=== PATIENT | female | born 1995 | race Caucasian/White ===

== ENCOUNTER 2018-08-17 10:19 | Emergency (ER) | payer OTHER ==
[~2018-08-17] VITALS: Ht 165.1 cm; Wt 87.0 kg
[~2018-08-17 10:19] MED LIST: GUAI5SYR2 PO; IBUP-1542 PO; OXYM15SP34 NASAL
[2018-08-17 10:24] VITALS: BP 141/82; PULSE 97; RESP 18; Ht 165.1 cm; Wt 87.0 kg
--- NOTE | 2018-08-17 11:14 | ERD ---
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 Patient with chronic complaint of left upper quadrant abdominal pain. Pain is been constant since June she denies any worsening of pain of radiation. She denies any nausea or vomiting, bright red blood per rectum, other bleeding symptoms, vaginal discharge or bleeding. At time of evaluation she is hemodynamically stable in no acute distress with normal triage vital signs. Requesting direct evaluation from her surgeon here at [facility]. ROS All systems reviewed and are negative except as per history of present illness. Medications Home Meds Active Scripts Guaifenesin-Dextromethorphan* (Robitussin* DM) 100MG/10MG/5ML Syrup, 10 ML PO Q6H PRN for COUGH, #1 BOTTLE Prov:JAMES SALCEDO 12/02/14 Oxymetazoline Hcl* (Afrin [place]*) 0.05% - 15 Ml [place], 2 SPRAYS NASAL BID for NASAL CONGESTION for 3 Days, SPRAY to each nostril Prov:JAMES SALCEDO 12/02/14 Ibuprofen* (Motrin*) 600 Mg Tab, 600 MG PO Q6H PRN for PAIN AND OR ELEVATED TEMP, #30 Prov:JOAN PONCE NP 10/27/14 Allergies Allergies: Coded Allergies: No Known Allergy (Unverified , 04/14/15) PMhx/Soc History of Surgery: No Anesthesia Reaction: No Hx Neurological Disorder: No Hx Respiratory Disorders: No Hx Cardiac Disorders: No Hx Psychiatric Problems: No Hx Miscellaneous Medical Probl: Yes (gerd) Hx Alcohol Use: No Hx Substance Use: No Hx Tobacco Use: No Smoking Status: Never smoker FmHx Family History: No diabetes, No coronary disease, No other Physical Exam Vitals Vital Signs Date Temp Pulse Resp B/P (MAP) Pulse Ox O2 O2 Flow FiO2 Time Delivery Rate 08/17/18 98.4 97 18 141/82 97 10:24 (101) Physical Exam Deferred Results 24 hrs Current Medications Medications Dose Sig/Noris Start Time Status Last (Trade) Ordered Route PRN Stop Time Admin Dose Reason Admin 0.5 ml ONCE ONCE 08/17/18 DC 08/17/18 Pneumococcal IM* 11:30 12:12 Polyvalent 08/17/18 11:33 Vaccine (Pneumovax-23 ) Procedures/MDM 23-year-old female who presents per request of her surgeon. Recently with MRI finding of exophytic mass of spleen possibly requiring splenectomy. Patient with no acute complaints at time of evaluation. Deferring physical examination preferring to be seen by her surgeon. Surgeon was contacted and further care will be handled by surgical team. Plan: Given 2 out of 4 requested vaccines, further care with Dr. Brenner Departure Condition: Stable AUSTEN SANCHEZ PA-C Aug 17, 2018 11:14
[2018-08-17] MEDS ORDERED: HAEMPH B POLYSAC CONJ-MENIN/PF 7.5 MCG/0.5 ML VIAL IM* ONE (11:30)
[2018-08-17] MEDS ORDERED: PNEUMOCOCCAL VACCINE 0.5 ML INJ IM* ONE (11:30)
--- NOTE | 2018-08-17 12:43 | QN ---
Documentation Comment My independent concise history is splenic mass. My pertinent physical exam findings are normal exam. The plan is the patient will be seen by Dr. Brenner in the emergency department. He has requested vaccines to be given and I have ordered the one that we have available in the 1 of the patient needed. She will need to get the 2 other meningococcal vaccines by her primary doctor as we do not have them here at the hospital. The patient will have an elective splenectomy within the next few weeks. RAJINDER PEDROZA MD Aug 17, 2018 12:43
--- NOTE | 2018-08-17 13:50 | CONS ---
Assessment/Plan Assessment/Plan Hospital Course (Demo Recall) 1. Splenic mass: -Patient will need to obtain immunizations prior to splenectomy>discussed with patient; she has received 1 vaccine in the ED, will need the others from PCP -To schedule appointment with us as outpatient 2 weeks after vaccinations for eventual splenectomy> discussed with patient 2. Intermittent abdominal pain: -Pain management as needed 3. Obesity: -Highly encourage weight loss -Diet and exercise optimization Thank you. Patient seen and examined in collaboration with Dr. Raul Brenner. Consultation Date/Type/Reason Admit Date/Time Date of Consultation: Aug 17, 2018 Type of Consult Surgical Reason for Consultation Splenic mass Requesting Provider: RAJINDER PEDROZA MD Date/Time of Note DATE: 08/17/18 TIME: 13:41 Hx of Present Illness Rebecca Schaefer is a 23-year-old woman with past medical history of mononucleosis, obesity, and appendicitis status post laparoscopic appendectomy who presented to the ED with complaints of left upper quadrant discomfort. Notably, she is known to have a splenic mass, found during outpatient workup, for which she is requesting surgical intervention. She denies fevers, chills, congested cough, chest pain, palpitations, nausea, vomiting, diarrhea, change in bowel or bladder habits, recent weight loss or weight changes. General surgery was asked to evaluate. 12 point review of systems was performed and is negative except as stated in HPI. Past Medical History As above Home Meds Active Scripts Guaifenesin-Dextromethorphan* (Robitussin* DM) 100MG/10MG/5ML Syrup, 10 ML PO Q6H PRN for COUGH, #1 BOTTLE Prov:JAMES SALCEDO 12/02/14 Oxymetazoline Hcl* (Afrin [place]*) 0.05% - 15 Ml [place], 2 SPRAYS NASAL BID for NASAL CONGESTION for 3 Days, SPRAY to each nostril Prov:JAMES SALCEDO 12/02/14 Ibuprofen* (Motrin*) 600 Mg Tab, 600 MG PO Q6H PRN for PAIN AND OR ELEVATED TEMP, #30 Prov:JOAN PONCE WEBSITE DESIGNER 10/27/14 Allergies: Coded Allergies: No Known Allergy (Unverified , 04/14/15) Past Surgical History As above Family History Significant Family History: no pertinent family hx Social History Alcohol Use: occasionally Smoking Status: Light tobacco smoker Drug Use: none Exam/Review of Systems Exam Vitals Vital Signs Date Temp Pulse Resp B/P (MAP) Pulse Ox O2 O2 Flow FiO2 Time Delivery Rate 08/17/18 98.4 97 18 141/82 97 10:24 (101) Constitutional: alert, oriented, well developed Psych: anxiety (Minimal) Head: normocephalic, atraumatic Eyes: nl conjunctiva, EOMI, nl lids, nl sclera ENMT: nl external ears & nose, nl lips & teeth, mucosa pink and moist Neck: supple, non-tender; No jvd Respiratory: normal air movement; No congested cough Cardiovascular: regular rate and rhythm, nl pulses; No edema Gastrointestinal: soft, non-tender, distended (Minimal), tender (Left upper quadrant) Genitourinary - Female: nl external genitalia Musculoskeletal: nl extremities to inspection, nl gait and stance Extremities: normal pulses; No edema Neurological: nl mental status, nl speech, nl strength Skin: nl turgor; No rash or lesions Lymph: nl lymph nodes ART PABON NP Aug 17, 2018 13:50
== END 2018-08-17 13:00 | disposition home or self-care (01) ==
LOC: FTE 10:19
DX: R16.1 Splenomegaly, not elsewhere classified (principal); Z23 Encounter for immunization
CPT/HCPCS: 90471; 90732; Z7502

== ENCOUNTER 2018-08-27 21:13 | Emergency (ER) | payer SELFPAY | END 2018-08-27 21:26 | disposition left against medical advice (07) | LOC: E/R 21:13 | DX: Z53.21 Procedure and treatment not carried out due to patient leaving prior to being seen by health care provider (principal) ==

== ENCOUNTER 2018-09-09 19:31 | Emergency (ER) | payer OTHER ==
[~2018-09-09] VITALS: Ht 165.1 cm; Wt 89.5 kg
[2018-09-09 19:40] VITALS: Ht 165.1 cm; Wt 89.5 kg
[2018-09-09] MEDS ORDERED: KETOROLAC 30 MG INJ IM STA (22:43)
[2018-09-10] MEDS ORDERED: ACET-141 PO (00:46)
[2018-09-10] MEDS ORDERED: CIPR500T4 PO (00:47)
--- NOTE | 2018-09-10 00:49 | ERD ---
ER Documentation Chief Complaint Chief Complaint C/O WORSENING LUQ PAIN X1 MONTH, STATES DX W/ SPLEEN TUMOR ROS All systems reviewed and are negative except as per history of present illness. Medications Home Meds Active Scripts Ciprofloxacin Hcl* (Ciprofloxacin Hcl*) 500 Mg Tablet, 500 MG PO BID for uti for 5 Days, #10 TAB Prov:SHILOH BEAVER DO 09/10/18 Acetaminophen* (Acetaminophen*) 500 MG Extra Strength Tablet, 500 MG PO Q4H PRN for PAIN AND OR ELEVATED TEMP, #30 TAB Prov:SHILOH BEAVER DO 09/10/18 Guaifenesin-Dextromethorphan* (Robitussin* DM) 100MG/10MG/5ML Syrup, 10 ML PO Q6H PRN for COUGH, #1 BOTTLE Prov:JAMES SALCEDO 12/02/14 Oxymetazoline Hcl* (Afrin [place]*) 0.05% - 15 Ml [place], 2 SPRAYS NASAL BID for NASAL CONGESTION for 3 Days, SPRAY to each nostril Prov:JAMES SALCEDO 12/02/14 Ibuprofen* (Motrin*) 600 Mg Tab, 600 MG PO Q6H PRN for PAIN AND OR ELEVATED TEMP, #30 Prov:JOAN PONCE EARTH SCIENCE FACULTY MEMBER 10/27/14 Allergies Allergies: Coded Allergies: No Known Allergy (Unverified , 09/09/18) PMhx/Soc History of Surgery: No Anesthesia Reaction: No Hx Neurological Disorder: No Hx Respiratory Disorders: No Hx Cardiac Disorders: No Hx Psychiatric Problems: No Hx Miscellaneous Medical Probl: Yes (gerd, spleen tumor dx [id number] ago scheduled for sx) Hx Alcohol Use: No Hx Substance Use: No Hx Tobacco Use: No Smoking Status: Never smoker Physical Exam Vitals Vital Signs Date Temp Pulse Resp B/P (MAP) Pulse Ox O2 O2 Flow FiO2 Time Delivery Rate 09/09/18 98.5 92 19 128/86 99 19:40 (100) Physical Exam Const: No acute distress Head: Atraumatic Eyes: Normal Conjunctiva ENT: Normal External Ears, Nose and Mouth. Neck: Full range of motion. No meningismus. Resp: Clear to auscultation bilaterally Cardio: Regular rate and rhythm, no murmurs Abd: Soft, non tender, non distended. Normal bowel sounds Skin: No petechiae or rashes Back: No midline or flank tenderness Ext: No cyanosis, or edema Neur: Awake and alert Psych: Normal Mood and Affect Result Diagram: 09/09/18225309/09/182252 Results 24 hrs Laboratory Tests Test 09/09/18 22:00 09/09/18 22:22 09/09/18 22:53 09/09/18 22:54 Urine Color RED Urine Clarity CLOUDY Urine pH 6.0 Urine Specific 1.024 [place] Urine Ketones NEGATIVE mg/dL Urine Nitrite NEGATIVE mg/dL Urine Bilirubin NEGATIVE mg/dL Urine Urobilinogen NEGATIVE mg/dL Urine Leukocyte 3+ Elana/ul Esterase Urine Microscopic 6 /HPF RBC Urine Microscopic 61 /HPF WBC Urine Squamous MANY /HPF Epithelial Cells Urine Bacteria FEW /HPF Urine Hemoglobin 3+ mg/dL Urine Glucose NEGATIVE mg/dL Urine Total NEGATIVE mg/dl Protein Bedside Urine pH 6.0 (LAB) Bedside Urine Negative Protein (LAB) Bedside Urine Negative Glucose (UA) Bedside Urine Negative Ketones (LAB) Bedside Urine 3+ Blood Bedside Urine Negative Nitrite (LAB) Bedside Urine 2+ Leukocyte Esterase (L POC Beta HCG, NEGATIVE Qualitative Sodium Level 144 mmol/L Potassium Level 4.1 mmol/L Chloride Level 104 mmol/L Carbon Dioxide 31 mmol/L Level Anion Gap 9 Blood Urea 20 mg/dl Nitrogen Creatinine 1.00 mg/dl Est Glomerular > 60 mL/min Filtrat Rate mL/min Glucose Level 94 mg/dl Calcium Level 9.6 mg/dl Total Bilirubin 0.2 mg/dl Direct Bilirubin 0.00 mg/dl Indirect Bilirubin 0.2 mg/dl Aspartate Amino 17 IU/L Transf (AST/SGOT) Alanine 23 IU/L Aminotransferase ( ALT/SGPT) Alkaline 68 IU/L Phosphatase Total Protein 8.0 g/dl Albumin 4.6 g/dl Globulin 3.40 g/dl Albumin/Globulin 1.35 Ratio Lipase 114 U/L White Blood Count 11.9 10^3/ul Red Blood Count 4.99 10^6/ul Hemoglobin 14.2 g/dl Hematocrit 43.1 % Mean Corpuscular 86.4 fl Volume Mean Corpuscular 28.5 pg Hemoglobin Mean Corpuscular 32.9 g/dl Hemoglobin Concent Red Cell 12.6 % Distribution Width Platelet Count 226 10^3/UL Mean Platelet 10.2 fl Volume Immature 0.300 % Granulocytes % Neutrophils % 50.5 % Lymphocytes % 39.7 % Monocytes % 5.8 % Eosinophils % 3.1 % Basophils % 0.6 % Nucleated Red 0.0 /100WBC Blood Cells % Immature 0.040 10^3/ul Granulocytes # Neutrophils # 6.0 10^3/ul Lymphocytes # 4.7 10^3/ul Monocytes # 0.7 10^3/ul Eosinophils # 0.4 10^3/ul Basophils # 0.1 10^3/ul Nucleated Red 0.0 10^3/ul Blood Cells # Current Medications Medications Dose Sig/Noris Start Time Status Last (Trade) Ordered Route PRN Stop Time Admin Dose Reason Admin Ketorolac 30 mg ONCE STAT 09/09/18 DC 09/09/18 Tromethamine IM 22:43 09/09/18 22:58 (Toradol) 22:45 Departure Diagnosis: Primary Impression: Abdominal pain Abdominal location: left upper quadrant Qualified Codes: R10.12 - Left upper quadrant pain Additional Impression: UTI (urinary tract infection) Condition: Fair Patient Instructions: Abdominal Pain Referrals: [facility] YOU HAVE RECEIVED A MEDICAL SCREENING EXAM AND THE RESULTS INDICATE THAT YOU DO NOT HAVE A CONDITION THAT REQUIRES URGENT TREATMENT IN THE EMERGENCY DEPARTMENT. FURTHER EVALUATION AND TREATMENT OF YOUR CONDITION CAN WAIT UNTIL YOU ARE SEEN I N YOUR DOCTORS OFFICE WITHIN THE NEXT 1-2 DAYS. IT IS YOUR RESPONSIBILITY TO MAKE AN APPOINTMENT FOR FOLOW-UP CARE. IF YOU HAVE A PRIMARY DOCTOR --you should call your primary doctor and schedule an appointment IF YOU DO NOT HAVE A PRIMARY DOCTOR YOU CAN CALL OUR PHYSICIAN REFERRAL HOTLINE AT IF YOU CAN NOT AFFORD TO SEE A PHYSICIAN YOU CAN CHOSE FROM THE FOLLOWING [facility] [address] [facility]. [facility] [address] [facility] [address] [facility] [facility] [address] [facility]. [facility] [address] [facility] [facility]. [address] Additional Instructions: Call your primary care doctor TOMORROW for an appointment during the next 1-2 days.See the doctor sooner or return here if your condition worsens before your appointment time. SHILOH BEAVER DO September 10, 2018 00:49
[2018-09-10 01:06] VITALS: BP 111/70; PULSE 74; RESP 17
== END 2018-09-10 01:07 | disposition home or self-care (01) ==
LOC: FTE 19:31
DX: N39.0 Urinary tract infection, site not specified (principal); Z85.09 Personal history of malignant neoplasm of other digestive organs
CPT/HCPCS: 36415; 76705; 80053; 81001; 81025; 83690; 85025; 96372; J1885; Z7502; 81003

== ENCOUNTER 2018-09-17 06:51 | Observation (INO) | payer OTHER ==
[2018-09-16 17:07] VITALS: BMI 32.3
[2018-09-17] VITALS (23 sets, daily range): BP systolic 100–126; BP diastolic 50–70; PULSE 84–113; RESP 11–87; Ht 165.1 cm; Wt 87.2 kg
[~2018-09-17] VITALS: Ht 165.1 cm; Wt 87.2 kg
[~2018-09-17 06:51] MED LIST changes: +ACET-141 PO; +CIPR500T4 PO
[2018-09-17] MEDS ORDERED: CEFAZOLIN 2 GM/50 ML (PMX) 50 ML IVPB ONE (07:00)
[2018-09-17] MEDS ORDERED: DESFLURANE 15 MIN ONE (07:00)
[2018-09-17] MEDS ORDERED: SUCCINYLCHOLINE CHLORIDE 100 MG/5 ML SYG IV ONE (07:00)
--- NOTE | 2018-09-17 08:09 | PREAC ---
Date/Time of Note Date/Time of Note DATE: 09/17/18 TIME: 08:02 Anesthesia Eval and Record Evaluation Time Pre-Procedure Interview DATE: 09/17/18 TIME: 08:02 Age 23 Sex female NPO: 8 hrs Preoperative diagnosis spleen tumor Planned procedure splenectomy Past Medical History Past Medical History: None Surgery & Anesthesia Issues No known issue Meds Anticoagulation: No Beta Hardeep within 24 hr: No Reason Beta Hardeep not given: Pt. not on B-Hardeep Discontinued Scripts Ciprofloxacin Hcl* (Ciprofloxacin Hcl*) 500 Mg Tablet, 500 MG PO BID for uti for 5 Days, #10 TAB Prov:SHILOH BEAVER 09/10/18 Acetaminophen* (Acetaminophen*) 500 MG Extra Strength Tablet, 500 MG PO Q4H PRN for PAIN AND OR ELEVATED TEMP, #30 TAB Prov:SDSHILOH 09/10/18 Guaifenesin-Dextromethorphan* (Robitussin* DM) 100MG/10MG/5ML Syrup, 10 ML PO Q6H PRN for COUGH, #1 BOTTLE Prov:JAMES SALCEDO 12/02/14 Oxymetazoline Hcl* (Afrin [place]*) 0.05% - 15 Ml [place], 2 SPRAYS NASAL BID for NASAL CONGESTION for 3 Days, SPRAY to each nostril Prov:JAMES SALCEDO 12/02/14 Ibuprofen* (Motrin*) 600 Mg Tab, 600 MG PO Q6H PRN for PAIN AND OR ELEVATED TEMP, #30 Prov:JOAN PONCE NP 10/27/14 Meds reviewed: Yes Allergies Coded Allergies: No Known Allergy (Unverified , 09/17/18) Allergies Reviewed: No Labs/Studies Labs Reviewed: Reviewed by anesthesiologist test: Negative Pre-procedure Exam Last vitals Vital Signs Date Temp Pulse Resp B/P (MAP) Pulse Ox O2 O2 Flow FiO2 Time Delivery Rate 09/17/18 99.0 87 87 110/65 97 Room Air 07:17 (80) Airway: Adequate mouth opening Mallampati: Mallampati II Teeth: Normal Lung: Normal Heart: Normal Anticipated Difficutly with IV: Anticipate Difficult IV Access ASA Physical Status ASA physical status: 4 Emergency: None Planned Anesthetic General/MAC: ETT Pre-operative Attestations Prior to commencing anesthesia and surgery, the patient was re-evaluated, there was verification of: *The patient's identity *The results of appropriate recent lab work and preoperative vital signs *The above evaluation not changing prior to induction *Anesthetic plan, risk benefits, alternative and complications discussed with patient/family; questions answered; patient/family understands, accepts and wishes to proceed. JOE DE LOS SANTOS MD September 17, 2018 08:09
[2018-09-17] MEDS ORDERED: HYDROmorphONE 2 MG/ML SYG ONE (08:33)
[2018-09-17] MEDS ORDERED: ROCURONIUM 50 MG INJ ONE (08:33)
[2018-09-17] MEDS ORDERED: PROPOFOL 20 ML ONE (08:33)
--- NOTE | 2018-09-17 08:33 | HPN ---
Date/Time of Note Date/Time of Note DATE: 09/17/18 TIME: 08:33 Interval H&P Admission Note Pt. seen H&P reviewed: No system changes uti s/p abx received all her immunizations no further bleeding SALLY CORRIGAN MD September 17, 2018 08:33
[2018-09-17] MEDS ORDERED: FENTAnyl 50 MCG/ML VIAL ONE ×2 (08:34→09:55)
[2018-09-17] MEDS ORDERED: MIDAZOLAM 1 MG/ML 2 ML INJ ONE (08:34)
[2018-09-17] MEDS ORDERED: ONDANSETRON 4 MG INJ ONE (08:34)
[2018-09-17] MEDS ORDERED: DEXAMETHASONE 4 MG/ML 5 ML INJ ONE (09:40)
[2018-09-17] MEDS ORDERED: LIDOCAINE 1% (MPF) 30 ML INJ ONE (09:47)
[2018-09-17] MEDS ORDERED: BUPIVACAINE 0.5%/EPI (SDV) 30 ML INJ ONE (09:47)
[2018-09-17] MEDS ORDERED: KETOROLAC 15 MG INJ IV PRN (11:30)
[2018-09-17] MEDS ORDERED: EPHEDrine 25 MG/5 ML SYG IV PRN (11:30)
[2018-09-17] MEDS ORDERED: MEPERIDINE 25 MG INJ IV PRN (11:30)
[2018-09-17] MEDS ORDERED: hydrALAzine 20 MG INJ IV PRN (11:30)
[2018-09-17] MEDS ORDERED: LABETALOL HCL 20MG INJ IV PRN (11:30)
[2018-09-17] MEDS ORDERED: METOCLOPRAMIDE 10 MG INJ IV PRN (11:30)
[2018-09-17] MEDS ORDERED: HYDROmorphONE 1 MG/5 ML IV SYRINGE IV PRN (11:30)
[2018-09-17] MEDS ORDERED: ONDANSETRON 4 MG INJ IV PRN (11:30)
[2018-09-17] MEDS ORDERED: SUGAMMADEX SODIUM 200 MG/2 ML VIAL IV ONE (11:50)
[2018-09-17] MEDS ORDERED: ACETAMINOPHEN 325 MG TAB PO PRN (12:00)
[2018-09-17] MEDS ORDERED: CEPASTAT LOZENGE MT PRN (12:00)
[2018-09-17] MEDS ORDERED: morphine 2 MG INJ IV PRN (12:00)
--- NOTE | 2018-09-17 12:07 | OPR ---
Date/Time of Note Date/Time of Note DATE: 09/17/18 TIME: 12:02 Operative Report Procedure Date: September 17, 2018 Preoperative Diagnosis Splenic mass Abdominal pain BMI 32 Postoperative Diagnosis Same Operation/Procedure Performed 1. Laparoscopic partial splenectomy 2. Laparoscopic chronic splenic mobilization 3. Local anesthetic injection, [id number] 4. Laparoscopic guided transversus abdominis plane block Surgeon Sally Brenner MD Business Process Manager Randi Andrade NP Anesthesia Type: general (Local and regional) Anesthesiologist: JOE DE LOS SANTOS MD Estimated Blood Loss: 0 - 10 ml's Transfusion none Specimen Partial spleen to pathologist with frozen section benign Grafts/Implants none Tubes/Drains 15 [place] Complications none Pt Condition Post Procedure: stable Disposition: PACU Indications Patient is 23-year-old female who had abdominal pain and on CT scan was found to have a splenic mass. She had her immunizations. She is here for splenectomy. Risks include but are not limited to bleeding, infection, abscess, seroma, leak, damage to intestines or any intra-abdominal/intrapelvic structures, hernia formation, chronic pain, need for re-operations or further surgeries, MT, stroke, PE, DVT, pneumonia, organ failures, or even . Procedure Description Patient was brought in and placed supine on the operating table. SCDs were pl aced. Preoperative antibiotics administered. After induction of anesthesia Betancourt was placed. On beanbag she was placed in lateral decubitus with the left side up. She was angled at 30 degrees of access to her abdomen. Axillary roll was placed. She was prepped and draped sterilely. Timeout was performed. Incision was made in left upper quadrant and using an Optiview port and a 5 mm 0 degrees scope abdomen was entered and insufflated to 15 mils mercury CO2. Laparoscopy was performed with a 5 mm 30 degree scope. No injuries were identified. Splenic mass was identified. Under direct visualization another 5 was placed in subxiphoid followed by 5 and 12 and left lateral/flank. 12 was placed in anterior axillary and the 5 was placed lateral to that. Investigation of the abdomen did not identify any other lesion. Local anesthetic injection was performed at all surgical sites to aid with pain control intra-and postoperatively. Laparoscopic guided transversus abdominis plane block was performed to aid with pain control intra-and postoperatively. The mass was identified to be coming off of the spleen medially. There was a vessel directly supplying the region of the mass. The colonic splenic flexure was mobilized using LigaSure away from the spleen freeing up the spleen and the hiatus. Decision was made to remove the mass as a biopsy and to obtain intraoperative pathologic consultation to identify if this is malignant or benign. The vessel was taken using LigaSure and the mass and a portion of the spleen just lateral to the mass became ischemic. Using 10 mm LigaSure the spleen was very gently and meticulously transected at the margin of ischemia with complete transection and complete hemostasis obtained. This was placed in a 50 mm bag and removed eventually through the 12 and report fascia site. This incision had to be enlarged by opening the fascia sharply and stretching the area to allow full extraction of the lesion. The lesion is about 6 x 6 x 5 cm. Intraoperative consultation was negative for malignancy and most probably benign. Actually they think this is probably splenic accessory tissue. 15 Swazi [place] drain was placed through the most lateral 5 mm port along the spleen and secured with 3-0 nylon. Omentum was pulled over the drain in the spleen. Ports and CO2 were removed under direct visualization. There was complete hemostasis. The extraction site was closed in multiple layers. 3-0 Vicryl peritoneal followed by 1 Vicryl posterior fascia followed by 1 Vicryl loose approximation of the muscle followed by 1 Vicryl fascial closure in the running fashion followed by 1 Vicryl subcutaneous closure in an interrupted fashion followed by 4-0 Monocryl subcuticular skin closure of all the incision sites. There was irrigation between each closure. Dermabond was applied. Patient was placed back supine. Patient was extubated transferred to recovery room in stable condition. All counts were correct at the end the operation x2. SALLY BRENNER MD September 17, 2018 12:07
[2018-09-17] MEDS: HYDROmorphONE 1 MG/5 ML IV SYRINGE IV PRN ×3 (12:37→12:53)
--- NOTE | 2018-09-17 13:37 | PAC ---
Date/Time of Note Date/Time of Note DATE: 09/17/18 TIME: 13:37 Post-Anesthesia Notes Post-Anesthesia Note Last documented vital signs Vital Signs Date Temp Pulse Resp B/P (MAP) Pulse Ox O2 O2 Flow FiO2 Time Delivery Rate 09/17/18 88 14 119/66 95 Room Air 12:50 (83) 09/17/18 98.2 12:20 Activity: WNL Respiratory function: WNL Cardiovascular function: WNL Mental status: Baseline Pain reasonably controlled: Yes Hydration appropriate: Yes Nausea/Vomiting absent: Yes JOE DE LOS SANTOS MD September 17, 2018 13:37
[2018-09-17] MEDS: HYDROCODONE/APAP (5/325) TAB PO PRN (19:22)
[2018-09-18 01:54] VITALS: BP 116/68; PULSE 68; RESP 18
[2018-09-18 07:57] VITALS: BP 109/68; PULSE 66; RESP 18
[2018-09-18] MEDS ORDERED: HYDR-3601 PO (08:57)
--- NOTE | 2018-09-18 08:58 | PDOCDIS ---
Discharge Instructions CONDITION [id number] Patient Condition: [id number] Good HOME CARE INSTRUCTIONS: [id number] Diet Instructions: [id number] Regular ACTIVITY: [id number] Activity Restrictions: [id number] Slowly Increase Activity FOLLOW UP/APPOINTMENTS Follow-up Plan pcp [address] Brenner 1 week BEATRICE BOLDEN MD September 18, 2018 08:58
[2018-09-18] MEDS: HYDROCODONE/APAP (5/325) TAB PO PRN (09:34)
--- NOTE | 2018-09-18 11:42 | DS ---
DATE OF ADMISSION: 09/17/2018 DATE OF DISCHARGE: 09/18/2018 DISCHARGE DIAGNOSES: 1. Splenic mass. 2. Status post laparoscopic partial splenectomy. 3. Laparoscopy, chronic splenic mobilization. HOSPITAL COURSE: A 23-year-old female with history of abdominal pain, was found to have splenic mass . She was electively admitted by Dr. Corrigan and underwent laparoscopic partial splenectomy. There were no intraoperative or postoperative complications. A AMEYA drain was placed. The patient is in a s table condition for discharge if okayed with Dr. Corrigan. I prescribed [place] for pain control. She will follow up with her primary care provider and Dr. Corrigan as outpatient. Dictated By: BEATRICE BOLDEN MD SK/NTS Conf#: [id number] DID#: [id number] CC: SALLY CORRIGAN MD;*EndCC*
[2018-09-18 14:00] VITALS: BP 114/63; PULSE 68; RESP 18
[2018-09-18] MEDS ORDERED: HYDROCODONE/APAP (5/325) TAB PO PRN (14:30)
[2018-09-18] MEDS: KETOROLAC 30 MG INJ IM SCH ×2 (14:44→18:30)
--- NOTE | 2018-09-18 16:31 | PN ---
Date/Time of Note Date/Time of Note DATE: 09/18/18 TIME: 16:25 Assessment/Plan Lines/Catheters IV Catheter Type (from Nrsg): Saline Lock Betancourt in Place (from Nrsg): Yes Assessment/Plan Chief Complaint/Hosp Course 1. Splenic mass status post laparoscopic partial splenectomy 09/17/2018 -IS -ambulate -ice pack to abdominal wall -Diet advancement after bowel function> nursing staff to call once bowel function -follow path 2. Urinary retention: -await void 3. Abdominal pain: improved -pain-mgt 4. Obesity bmi 32 -diet and exercise optimization -encourage weight loss Thank you. Patient seen and examined in collaboration with Dr. Raul Brenner. Subjective 24 Hr Interval Summary Some abdominal pain improved after AMEYA DC'd. No bowel function as of yet. Urinary retention status post Betancourt catheter-no voiding as of yet. No fevers, chills, sob, congested cough, cp, palpitations, echevarria, dizziness, nausea, vomiting, diarrhea, dysuria. Exam/Review of Systems Vital Signs Vitals Vital Signs Date Temp Pulse Resp B/P (MAP) Pulse Ox O2 O2 Flow FiO2 Time Delivery Rate 09/18/18 98.7 66 18 109/68 98 Room Air 07:57 (82) Intake and Output 09/17/18 09/17/18 09/18/18 1515:00 23:00 07:00 IntakeIntake Total 1800 ml OutputOutput Total 410 ml 1000 ml 20 ml BalanceBalance 1390 ml -1000 ml -20 ml Exam Constitutional: alert, oriented Psych: nl mood/affect Head: normocephalic, atraumatic Eyes: nl conjunctiva, EOMI, nl lids, nl sclera ENMT: nl external ears & nose, nl lips & teeth, mucosa pink and moist Neck: supple, non-tender; No jvd Respiratory: normal air movement; No congested cough Cardiovascular: regular rate and rhythm Gastrointestinal: soft, distended (Minimal), tender (Hallie-incisional; incision sites dry without drainage/discoloration/bruising; AMEYA serosanguineous drainage) Genitourinary - Female: nl external genitalia Musculoskeletal: nl extremities to inspection, nl gait and stance Extremities: normal pulses Neurological: nl mental status, nl speech Skin: No rash or lesions Results Result Diagram: 09/18/18 0847 09/18/18 0847 ART PABON NP September 18, 2018 16:31
[2018-09-18 19:40] VITALS: BP 109/68; PULSE 96; RESP 18
== END 2018-09-18 21:55 | disposition home or self-care (01) ==
LOC: SDS 06:51 → REC 11:57 → INTOOBSV 11:57 → MS1 14:00
PROVIDERS: ADMIT Surgery; ATTEND Surgery
DX: R16.1 Splenomegaly, not elsewhere classified (principal); E66.9 Obesity, unspecified; Z68.32 Body mass index [BMI] 32.0-32.9, adult; R33.9 Retention of urine, unspecified
CPT/HCPCS: 38120; 71045; 80048; 85025; 85610; 85730; 86850; 86900; 86901; 88307; 88313; 88331; 88341; 88342; J0690; J1100; J1170; J1885; J2250; J2405; J3010; Z7500; Z7512; Z7610; 99217; G0378